=== PATIENT | female | born 1940 | race Caucasian/White ===

== ENCOUNTER 2019-08-16 15:48 | Inpatient (IN) | payer MEDICARE ==
[2019-08-17] MEDS ORDERED: Acetaminophen 325 MG TAB PO PRN (00:25)
[2019-08-17] MEDS ORDERED: Senokot S 8.6-50 MG TAB PO PRN (00:25)
[2019-08-17] MEDS ORDERED: HYDROcodone/Acetaminophen 7.5/325 mg Tablet PO SCH (00:30)
[2019-08-17 01:28] VITALS: BMI 23.6
[2019-08-17] MEDS: Levothyroxine Sodium 100 MCG TAB PO SCH (05:44)
[2019-08-17] MEDS ORDERED: FLU VACC TS2019-20(65YR UP)/PF 180 MCG/0.5 ML SYRINGE IM ONE (09:00)
[2019-08-17] MEDS: Docusate 100 MG CAP PO SCH ×2 (09:16→21:18)
[2019-08-17] MEDS: Famotidine 20 MG TAB PO SCH ×2 (09:17→21:19)
[2019-08-17] MEDS: Hydrochlorothiazide 25 MG TAB PO SCH (09:17)
[2019-08-17] MEDS: Losartan 25 MG TAB PO SCH (09:18)
[2019-08-17] MEDS: Aspirin 81 mg Enteric Coated Tablet PO SCH ×2 (09:20→21:18)
[2019-08-17] MEDS: CALCIUM ACETATE PO SCH (09:23)
[2019-08-17] MEDS: Polyethylene Glycol 3350 17 GM Packet PO SCH (09:24)
[2019-08-17] MEDS: VIT B COMPLEX AND C PO SCH (09:24)
[2019-08-17] MEDS: FOLIC ACID PO SCH (09:24)
[2019-08-17] MEDS: CeleCOXIB 100 MG CAP PO SCH (09:29)
[2019-08-17] MEDS: HYDROcodone/Acetaminophen 7.5/325 mg Tablet PO PRN ×2 (10:40→22:59)
[2019-08-18] MEDS: Levothyroxine Sodium 100 MCG TAB PO SCH (05:39)
[2019-08-18] MEDS: Floranex Packet PO SCH (08:45)
[2019-08-18] MEDS: Polyethylene Glycol 3350 17 GM Packet PO SCH (08:45)
[2019-08-18] MEDS: HYDROcodone/Acetaminophen 7.5/325 mg Tablet PO PRN ×2 (08:46→15:45)
[2019-08-18] MEDS: Losartan 25 MG TAB PO SCH (08:49)
[2019-08-18] MEDS: CeleCOXIB 100 MG CAP PO SCH (08:49)
[2019-08-18] MEDS: Docusate 100 MG CAP PO SCH ×2 (08:50→21:38)
[2019-08-18] MEDS: Hydrochlorothiazide 25 MG TAB PO SCH (08:50)
[2019-08-18] MEDS: Famotidine 20 MG TAB PO SCH ×2 (08:50→21:38)
[2019-08-18] MEDS: Aspirin 81 mg Enteric Coated Tablet PO SCH ×2 (08:50→21:38)
[2019-08-18] MEDS: FOLIC ACID PO SCH (08:51)
[2019-08-18] MEDS: VIT B COMPLEX AND C PO SCH (08:51)
[2019-08-18] MEDS: CALCIUM ACETATE PO SCH (08:51)
[2019-08-19] MEDS: HYDROcodone/Acetaminophen 7.5/325 mg Tablet PO PRN ×4 (00:08→21:47)
[2019-08-19] MEDS: Levothyroxine Sodium 100 MCG TAB PO SCH (06:16)
[2019-08-19] MEDS: Hydrochlorothiazide 25 MG TAB PO SCH (08:29)
[2019-08-19] MEDS: Polyethylene Glycol 3350 17 GM Packet PO SCH (08:29)
[2019-08-19] MEDS: Docusate 100 MG CAP PO SCH ×2 (08:30→21:47)
[2019-08-19] MEDS: Losartan 25 MG TAB PO SCH (08:30)
[2019-08-19] MEDS: Famotidine 20 MG TAB PO SCH ×2 (08:30→21:47)
[2019-08-19] MEDS: CeleCOXIB 100 MG CAP PO SCH (08:30)
[2019-08-19] MEDS: Floranex Packet PO SCH (08:31)
[2019-08-19] MEDS: Aspirin 81 mg Enteric Coated Tablet PO SCH ×2 (08:31→21:47)
[2019-08-19] MEDS: VIT B COMPLEX AND C PO SCH (08:32)
[2019-08-19] MEDS: CALCIUM ACETATE PO SCH (08:32)
[2019-08-19] MEDS: FOLIC ACID PO SCH (08:32)
[2019-08-20] MEDS: HYDROcodone/Acetaminophen 7.5/325 mg Tablet PO PRN ×3 (06:08→20:33)
[2019-08-20] MEDS: Levothyroxine Sodium 100 MCG TAB PO SCH (06:08)
[2019-08-20] MEDS: Polyethylene Glycol 3350 17 GM Packet PO SCH (09:53)
[2019-08-20] MEDS: Docusate 100 MG CAP PO SCH ×2 (09:54→20:35)
[2019-08-20] MEDS: Aspirin 81 mg Enteric Coated Tablet PO SCH ×2 (09:54→20:34)
[2019-08-20] MEDS: Losartan 25 MG TAB PO SCH (09:54)
[2019-08-20] MEDS: Famotidine 20 MG TAB PO SCH ×2 (09:55→20:34)
[2019-08-20] MEDS: CeleCOXIB 100 MG CAP PO SCH (09:55)
[2019-08-20] MEDS: Hydrochlorothiazide 25 MG TAB PO SCH (09:55)
[2019-08-20] MEDS: Floranex Packet PO SCH (09:56)
[2019-08-20] MEDS: CALCIUM ACETATE PO SCH (09:58)
[2019-08-20] MEDS: FOLIC ACID PO SCH (09:58)
[2019-08-20] MEDS: VIT B COMPLEX AND C PO SCH (09:58)
--- NOTE | 2019-08-20 11:23 | HP ---
PRIMARY CARE PHYSICIAN: Dr. Anatoliy Rodas. REASON FOR ADMISSION: For skilled rehabilitation at [facility] status post left total knee replacement. HISTORY OF PRESENTING ILLNESS: Jean-Paul is a very pleasant 78-year-old female, who presented to [facility] for an elective left total knee replacement. The patient does have a history of 2 prior partial knee replacements to the left knee in 2014. The patient states since the knee surgery in 2014, she has had significant knee pain with loosening. The patient states eventually pain was unbearable, so she decided to go for a total knee replacement. The patient does have a history of arthritis, hypertension, and hypothyroidism. She had left total knee replacement on August 15, 2019, and tolerated the procedure well. She denies any postoperative complications. The patient had a [employer] continuous pump with Ropivacaine attached to the knee which she was discharged with. The decision was made for the patient to start physical therapy and she was subsequently transferred here to [facility] to participate in physical therapy prior to discharge back to home with her . Upon evaluation of the patient today, she is excited to start physical therapy. She states she is currently able to ambulate slowly with a rolling walker. She denies any nausea or vomiting. The patient complains of constipation and states she had one bowel movement today, but it was very small and hard. Prior to that, she has not had any bowel movement for the past 3 days. She denies any fever. She denies any chest pain, shortness of breath or palpitation. PAST MEDICAL HISTORY: Hypertension, hypothyroidism, arthritis, postoperative nausea and vomiting. PAST SURGICAL HISTORY: Bilateral cataract extraction, eye surgery, oophorectomy in 1961, left partial knee arthroplasty in August 2015, right foot surgery and left foot surgery. MEDICATIONS: 1. Calcium acetate 500 daily. 2. Probiotic one tab daily. 3. Vitamin B complex one tab daily. 4. Celebrex 200 daily. 5. Levothyroxine 100 mcg daily. 6. Lisinopril/hydrochlorothiazide 100/12.5 mg daily. CODE STATUS: The patient is a full code. ALLERGIES: NO KNOWN DRUG ALLERGIES. SOCIAL HISTORY: The patient is a former smoker. Denies alcohol use. Denies illicit drug use. The patient currently lives at home with her . REVIEW OF SYSTEMS: GENERAL: The patient complains of gait instability. HEENT: Denies oral pain, ear pain or blurry vision. CARDIAC: Denies chest pain or palpitation. RESPIRATORY: Denies cough or shortness of breath. ABDOMEN: Denies abdominal pain, nausea, vomiting or diarrhea. Complains of constipation. GENITOURINARY: Denies dysuria or hematuria. MUSCULOSKELETAL: Complains of left knee pain. NEUROLOGICAL: Denies weakness or numbness to extremities. PSYCHIATRIC: Denies any delirium or depression. PHYSICAL EXAMINATION: VITAL SIGNS: Temperature 98.6, pulse 76, respirations 16, O2 sat 98% on room air, and blood pressure 143/58. GENERAL: The patient is alert, awake, and oriented x3, sitting up in bedside bed , pleasant, very conversational. CARDIAC: S1 and S2 present. No murmurs. Normal reading. RESPIRATORY: Clear to auscultation bilaterally. ABDOMEN: Positive bowel sounds, nontender and nondistended. No guarding or rebound. EXTREMITIES: Mild edema to the left leg. Dressing to anterior knee, clean, dry, intact. Left thigh with continuous AIR [employer]PER[employer]OR pump, infusion still ongoing. NEUROLOGICAL: No focal neuro deficits. ASSESSMENT: 1. Left total knee replacement. 2. Gait instability. 3. Hypertension. 4. Hypothyroidism. 5. Gait instability. PLAN: The patient is a 78-year-old female, who is being admitted to [facility] for acute rehabilitation status post a left total knee replacement. We will consult Physical Therapy to help with gait strengthening and mobility. We will consult Occupational Therapy to help with activities of daily living prior to discharge to home. We will remove [employer]PER[employer]OR pump in AM so family can send the pump back to the hospital as instructed. We will resume the patient's home medications. We will place the patient on [place] p.r.n. for pain. We will place the patient on MiraLAX daily and Colace daily for constipation. We will monitor patient closely for any hemodynamic instability that may interfere with physical therapy. We will place the patient on Pepcid b.i.d. for GI prophylaxis. We will use compression stocking to the right lower extremity for DVT prophylaxis. ESTIMATED LENGTH OF STAY: 2 to 3 weeks. DISPOSITION: Back to home. Job ID: [id number] [facility]
[2019-08-20] MEDS: Calcium Carbonate + Vit D 1 TAB PO SCH (17:29)
[2019-08-21] MEDS: HYDROcodone/Acetaminophen 7.5/325 mg Tablet PO PRN ×3 (05:48→23:56)
[2019-08-21] MEDS: Levothyroxine Sodium 100 MCG TAB PO SCH (05:49)
[2019-08-21] MEDS: Polyethylene Glycol 3350 17 GM Packet PO SCH (08:32)
[2019-08-21] MEDS: Floranex Packet PO SCH (08:35)
[2019-08-21] MEDS: Stress 600 With Zinc 1 TAB PO SCH (08:35)
[2019-08-21] MEDS: Calcium Carbonate + Vit D 1 TAB PO SCH ×2 (08:35→16:38)
[2019-08-21] MEDS: Losartan 25 MG TAB PO SCH (08:35)
[2019-08-21] MEDS: Hydrochlorothiazide 25 MG TAB PO SCH (08:36)
[2019-08-21] MEDS: CeleCOXIB 100 MG CAP PO SCH (08:36)
[2019-08-21] MEDS: Famotidine 20 MG TAB PO SCH ×2 (08:36→20:12)
[2019-08-21] MEDS: Aspirin 81 mg Enteric Coated Tablet PO SCH ×2 (08:36→20:12)
[2019-08-21] MEDS: Docusate 100 MG CAP PO SCH (08:37)
[2019-08-22] MEDS: HYDROcodone/Acetaminophen 7.5/325 mg Tablet PO PRN ×2 (05:53→13:12)
[2019-08-22] MEDS: Levothyroxine Sodium 100 MCG TAB PO SCH (05:54)
[2019-08-22] MEDS: CeleCOXIB 100 MG CAP PO SCH (08:39)
[2019-08-22] MEDS: Floranex Packet PO SCH (08:39)
[2019-08-22] MEDS: Polyethylene Glycol 3350 17 GM Packet PO SCH (08:39)
[2019-08-22] MEDS: Losartan 25 MG TAB PO SCH (08:40)
[2019-08-22] MEDS: Calcium Carbonate + Vit D 1 TAB PO SCH ×2 (08:41→17:08)
[2019-08-22] MEDS: Famotidine 20 MG TAB PO SCH ×2 (08:42→20:54)
[2019-08-22] MEDS: Docusate 100 MG CAP PO SCH (08:42)
[2019-08-22] MEDS: Hydrochlorothiazide 25 MG TAB PO SCH (08:42)
[2019-08-22] MEDS: Aspirin 81 mg Enteric Coated Tablet PO SCH ×2 (08:42→20:54)
[2019-08-22] MEDS: Stress 600 With Zinc 1 TAB PO SCH (08:43)
[2019-08-22] MEDS: Ondansetron ODT 4 MG TAB PO PRN ×2 (14:09→20:54)
[2019-08-23] MEDS: Levothyroxine Sodium 100 MCG TAB PO SCH (05:43)
[2019-08-23] MEDS: HYDROcodone/Acetaminophen 7.5/325 mg Tablet PO PRN ×2 (05:43→10:57)
[2019-08-23 06:54] VITALS: BP 154/75; TEMP 97.9
[2019-08-23] MEDS: Losartan 25 MG TAB PO SCH (08:39)
[2019-08-23] MEDS: Polyethylene Glycol 3350 17 GM Packet PO SCH (08:39)
[2019-08-23] MEDS: Floranex Packet PO SCH (08:39)
[2019-08-23] MEDS: Calcium Carbonate + Vit D 1 TAB PO SCH (08:39)
[2019-08-23] MEDS: CeleCOXIB 100 MG CAP PO SCH (08:39)
[2019-08-23] MEDS: Famotidine 20 MG TAB PO SCH (08:41)
[2019-08-23] MEDS: Hydrochlorothiazide 25 MG TAB PO SCH (08:41)
[2019-08-23] MEDS: Docusate 100 MG CAP PO SCH (08:41)
[2019-08-23] MEDS: Stress 600 With Zinc 1 TAB PO SCH (08:41)
[2019-08-23] MEDS: Aspirin 81 mg Enteric Coated Tablet PO SCH (08:41)
[2019-08-23] MEDS ORDERED: HYDROcodone/Acetaminophen 7.5/325 mg Tablet PO SCH (10:30)
--- NOTE | 2019-08-24 00:11 | DIS ---
DATE OF ADMISSION: 08/16/2019 DATE OF DISCHARGE: 08/23/2019 PRIMARY CARE PHYSICIAN: Dr. Cope Head. DISCHARGE DISPOSITION: Back to home with family. DISCHARGE DIAGNOSES: 1. Status post left total knee replacement. 2. Gait instability, improving. 3. Hypertension. 4. Hypothyroidism. CODE STATUS: The patient is a full code. DISCHARGE ACTIVITY: The patient to start outpatient physical therapy at [facility]. The patient to follow up with orthopedic surgeon on August 23. The patient is to ambulate with four wheel walker. The patient to follow up with PCP within one week. BRIEF HOSPITAL COURSE: Ms. Jean-Paul Vasquez is a 78-year-old very pleasant female, who was admitted here in [facility] August 16, 2019, after having a total left knee replacement on the August 15 at [facility]. The patient tolerated surgical procedure well. She was subsequently discharged here for skilled rehabilitation prior to discharge back to her home with her . Upon admission here, the patient tolerated PT nicely. By day of discharge, she was able to ambulate with a four wheel rolling walker above 550 feet. The patient was able to meet some of our goals prior to discharge back home. She has an appointment with the orthopedic surgeon today and she is excited to go back home. DISCHARGE VITAL SIGNS: Temperature 98, pulse 78, respirations 16, O2 saturation 96% on room air, blood pressure 117/66. DISCHARGE MEDICATIONS: 1. Aspirin 81 mg b.i.d. 2. Celebrex 200 daily. 3. Losartan and hydrochlorothiazide 100/12.5 daily. 4. Multivitamin one tab daily. 5. Probiotic one tab daily. 6. Vitamin B complex daily. 7. Levothyroxine 100 mcg daily. The patient was discharged home in a stable condition with her . Job ID: [id number] [id number]
== END 2019-08-23 11:45 | disposition home or self-care (01) | DRG 561 ==
LOC: MADMS 20:04
PROVIDERS: ADMIT Family Medicine; ATTEND Family Medicine
DX: Z47.1 Aftercare following joint replacement surgery (principal); Z96.652 Presence of left artificial knee joint; I10 Essential (primary) hypertension; R26.9 Unspecified abnormalities of gait and mobility; E03.9 Hypothyroidism, unspecified; M19.91 Primary osteoarthritis, unspecified site; Z98.42 Cataract extraction status, left eye; Z98.41 Cataract extraction status, right eye; K59.00 Constipation, unspecified
CPT/HCPCS: Q0162